=== PATIENT | female | born 1970 | race American Indian/Alaskan Native ===

== ENCOUNTER 2017-07-31 18:44 | Emergency (ER) | payer BC ==
--- NOTE | 2017-07-31 20:16 | ED PDOC ---
HPI: General Adult Time Seen by Provider: 07/31/17 19:13 Chief Complaint (Nursing): Abdominal Pain Chief Complaint (Provider): Chest discomfort History Per: Patient History/Exam Limitations: no limitations Onset/Duration Of Symptoms: Days (x1) Current Symptoms Are (Timing): Still Present Additional Complaint(s): Veena Pink is a 47 year old female, with no significant past medical history, who presents to the emergency department complaining of a chest discomfort after she swallowed 2 pills last night. Patient states she took 2 pills and laid down in bed but felt like something was stuck, she drank more water but with no relief. Patient has been eating and drinking normally all day. She denies any pain or similar symptoms in the past. No further medical complaints. PMD: Shane Esparza Past Medical History Reviewed: Historical Data, Nursing Documentation, Vital Signs Vital Signs: Last Vital Signs Temp 97.7 F 07/31/17 19:02 Pulse 78 07/31/17 19:02 Resp 16 07/31/17 19:02 BP 125/67 07/31/17 19:02 Pulse Ox 100 07/31/17 20:19 - Medical History PMH: No Chronic Diseases - Surgical History Surgical History: No Surg Hx - Family History Family History: States: No Known Family Hx - Immunization History Hx Tetanus Toxoid Vaccination: No Hx Influenza Vaccination: No Hx Pneumococcal Vaccination: No - Home Medications Home Medications: Ambulatory Orders Medication Instructions Recorded Prednisone 2 tab PO DAILY #10 tab 06/03/14 - Allergies Allergies/Adverse Reactions: Allergies Allergy/AdvReac Type Severity Reaction Status Date / Time No Known Allergies Allergy Verified 07/31/17 19:05 Review of Systems ROS Statement: Except As Marked, All Systems Reviewed And Found Negative Constitutional: Positive for: Other (chest discomfort) Physical Exam - Reviewed Nursing Documentation Reviewed: Yes Vital Signs Reviewed: Yes - Physical Exam Appears: Positive for: Well, Non-toxic, No Acute Distress Head Exam: Positive for: ATRAUMATIC, NORMAL INSPECTION, NORMOCEPHALIC Skin: Positive for: Normal Color, Warm, Dry Eye Exam: Positive for: Normal appearance ENT: Positive for: Other (uvula centerline no edema. Good dentition). Negative for: Pharyngeal Erythema, Tonsillar Exudate (drainage or discharge), Tonsillar Swelling (or abscess) Neck: Positive for: Painless ROM Cardiovascular/Chest: Positive for: Regular Rate, Rhythm Respiratory: Positive for: Normal Breath Sounds Pulses-Carotid (L): 2+ Pulses-Carotid (R): 2+ Pulses-Radial (L): 2+ Pulses-Radial (R): 2+ Gastrointestinal/Abdominal: Positive for: Normal Exam, Bowel Sounds, Soft. Negative for: Tenderness Neurologic/Psych: Positive for: Alert, Oriented - ECG O2 Sat by Pulse Oximetry: 100 (RA) Pulse Ox Interpretation: Normal Medical Decision Making Medical Decision Making: Initial Impression: R/o FB GERD Initial Plan: CXR --Reevaluation CXR Negative for all findings; will tx pt with omeprazole QD and follow up with PMD Scribe Attestation: Documented by Edil Mcgraw acting as a scribe for Jhon Tamez PA-C. MD Scribe Attestation: All medical record entries made by the Scribe were at my direction and personally dictated by me. I have reviewed the chart and agree that the record accurately reflects my personal performance of the history, physical exam, medical decision making, and the department course for this patient. I have also personally directed, reviewed, and agree with the discharge instructions and disposition. Disposition - Clinical Impression Clinical Impression: Acid reflux - Patient ED Disposition Is Patient to be Admitted: No Doctor Will See Patient In The: Office Counseled Patient/Family Regarding: Studies Performed, Diagnosis, Need For Followup, Rx Given - Disposition Disposition: Routine/Home Disposition Time: 20:46 Condition: GOOD Additional Instructions: Take OTC omeprazole 20mg every day Follow up with your PMD I have reviewed and agree with this treatment plan: Patient signature Date: Doctors signature Date: RN's Signature Date: Instructions: Acid Reflux (Gastroesophageal Reflux Disease), Adult (DC) Forms: [facility] (Azeri)
--- NOTE | 2017-08-01 09:53 | RAD ---
HISTORY: r/o fb aspirated COMPARISON: No prior. TECHNIQUE: Chest PA and lateral FINDINGS: LUNGS: No active pulmonary disease. PLEURA: No significant pleural effusion identified. No pneumothorax apparent. CARDIOVASCULAR: Normal. OSSEOUS STRUCTURES: No significant abnormalities. VISUALIZED UPPER ABDOMEN: Normal. OTHER FINDINGS: None. IMPRESSION: No active disease.
[2017-08-01 11:36] VITALS: BP 125/67; PULSE 78; RESP 16; TEMP 97.7; O2SAT 100
== END 2017-08-01 00:15 | disposition home or self-care (01) ==
LOC: H.ER 18:44
DX: K21.9 Gastro-esophageal reflux disease without esophagitis (principal)